=== PATIENT | male | born 2000 | race African-American/Black ===

== ENCOUNTER 2021-11-21 21:04 | Emergency (ER) | payer OTHER, BC | END 2021-11-21 22:20 | disposition home or self-care (01) | LOC: JD.ED 21:04 | DX: S52.501A Unspecified fracture of the lower end of right radius, initial encounter for closed fracture (principal); V86.56XA Driver of dirt bike or motor/cross bike injured in nontraffic accident, initial encounter; Y92.410 Unspecified street and highway as the place of occurrence of the external cause | CPT/HCPCS: 73110-26-RT; 73110-RT; 99283-25 ==